=== PATIENT | male | born 1965 | race Caucasian/White ===

== ENCOUNTER 2023-11-16 16:02 | Emergency (ER) | payer BC ==
[~2023-11-16] VITALS: Ht 175.3 cm; Wt 72.7 kg
[2023-11-16 16:05] VITALS: BP 110/89; PULSE 79; RESP 18; O2SAT 99
[2023-11-16] MEDS: TETanus/Pertussis (Acell)/Diphther VAC/PF (Tdap-Adult) 0.5ml syringe IMVAC ONE (18:02)
[2023-11-16] MEDS: LIDOcaine 1% 30ml preserv. free vial IJ STA (18:03)
[2023-11-16 19:23] VITALS: TEMP 98.5
== END 2023-11-16 19:25 | disposition home or self-care (01) ==
LOC: ER 16:03
DX: S61.211A Laceration without foreign body of left index finger without damage to nail, initial encounter (principal); Z91.040 Latex allergy status; W26.9XXA Contact with unspecified sharp object(s), initial encounter; Y93.89 Activity, other specified; Y92.89 Other specified places as the place of occurrence of the external cause; Y99.8 Other external cause status
CPT/HCPCS: 12001; 73140; 90471; 90715; 99283; A6258; J3490; A6449